=== PATIENT | male | born 1975 | race Caucasian/White ===

== ENCOUNTER 2017-01-24 20:10 | Emergency (ER) | payer MEDICARE, MEDICAID ==
[~2017-01-24] VITALS: Ht 185.4 cm; Wt 64.9 kg
[~2017-01-24 20:10] MED LIST: ASPIRIN CHEWABL81 MG PO; ATORVASTATIN CA20 M1 PO; BACTRIM DS 8001 TA1 PO; BUSPIRONE HCL10 MG PO; DOCUSATE SODIU100 M2 PO; LAMICTAL100 MG PO; LEVOFLOXACIN500 MG PO; LIDEX 0.05% CRE15 GM T; LITHOBID300 M1 PO; MIRALAX POWDER255 GM PO; NIASPAN1000 MG PO; Nizoral 2%15 GM T; OLANZAPINE15 M2 PO; PREDNISONE20 M1 PO; PRILOSEC10 M1 PO; RISPERDAL M-TAB4 MG PO; TRAZADONE HYDR100 MG PO; TRIAMCINOLONE AC0.1% T; TYLENOL325 M2 PO; VITAMIN D400 I1 PO; ZYPREXA20 M1 PO
[2017-01-24] MEDS ORDERED: VRAYLAR1.5 MG PO (20:25)
[2017-01-24] MEDS ORDERED: COLACE100 MG PO (21:35)
[2017-01-24] MEDS ORDERED: MIRALAX17 GM PO (21:35)
== END 2017-01-24 21:06 | disposition home or self-care (01) ==
LOC: ED 20:10
DX: K59.00 Constipation, unspecified (principal); F17.200 Nicotine dependence, unspecified, uncomplicated; Z79.82 Long term (current) use of aspirin; Z79.899 Other long term (current) drug therapy

== ENCOUNTER 2017-02-17 15:16 | Emergency (ER) | payer MEDICARE, MEDICAID ==
[~2017-02-17] VITALS: Ht 180.3 cm; Wt 72.6 kg
[~2017-02-17 15:16] MED LIST changes: +COLACE100 MG PO; +MIRALAX17 GM PO; +VRAYLAR1.5 MG PO
== END 2017-02-17 15:48 | disposition home or self-care (01) ==
LOC: ED 15:16
DX: H10.9 Unspecified conjunctivitis (principal); Z79.82 Long term (current) use of aspirin; Z79.899 Other long term (current) drug therapy

== ENCOUNTER 2017-02-21 19:00 | Emergency (ER) | payer MEDICARE, MEDICAID ==
[~2017-02-21] VITALS: Ht 180.3 cm; Wt 72.6 kg
[2017-02-21] MEDS ORDERED: CEPHALEXIN500 M1 PO (20:03)
[2017-02-21] MEDS ORDERED: TOBRADEX 0.1%-0.5 ML OPH (20:03)
== END 2017-02-21 20:07 | disposition home or self-care (01) ==
LOC: ED 19:00
DX: H10.31 Unspecified acute conjunctivitis, right eye (principal); H60.8X2 Other otitis externa, left ear; Z79.82 Long term (current) use of aspirin; Z79.899 Other long term (current) drug therapy